=== PATIENT | female | born 1965 | race Caucasian/White ===

== ENCOUNTER 2022-06-18 05:49 | Observation (INO) | payer BC, OTHER ==
[2022-06-18 06:29] LABS: Actual Bicarbonate (HCO3v) 25 mEq/L (22-28); Base Excess 0.1 mEq/L (-2.0 to +3.0); Calcium, Ionized (venous) 1.14 mmol/L (1.16-1.32); Chloride (VBG) 103 mmol/L (98-106); Hemoglobin (Hb) 10.5 g/dL (11.7-16.0); Potassium (VBG) 3.79 mmol/L (3.70-5.30); Puncture Site Other Site; RapidComm Collect By CBN; pH (venous) 7.38 (7.32-7.43)
[2022-06-18 06:35] LABS: #Monocytes 0.5 10x3/uL (0.0-1.1); #Neutrophils 8.8 10x3/uL (1.5-8.4); %Basophils 0.2 % (0.0-2.0); %Eosinophils 0.1 % (0.0-6.0); %Lymphocytes 2.5 % (18.0-47.0); %Monocytes 5.3 % (0.0-10.0); %Neutrophils 90.8 % (40.0-75.0); Hemoglobin 9.6 g/dL (12.0-15.5); Mean Corpuscular HGB CONC 29.6 g/dL (32.0-36.0); Mean Corpuscular Hemoglobin 22.7 pg (27.0-33.0); Mean Corpuscular Volume 76.8 fl (81.6-98.3); Mean Platelet Volume 9.2 fl (7.4-10.4); Platelet Count 314 10x3/uL (150-450); RBC Distribution Width 20.4 % (11.5-14.5); Red Blood Cell (RBC) Count 4.22 10x6/uL (3.90-5.03); White Blood Cell (WBC) Count 9.7 10x3/uL (3.5-10.5)
[2022-06-18 06:42] LABS: INR-International Normal Ratio 1.1; PTT 29.5 sec (22.0-33.0)
[2022-06-18 06:53] LABS: Platelet Morphology Comment Appears Adequate
[2022-06-18 06:56] LABS: Hypochromia SLIGHT = 6-15 cells (100X) (0-5/hpf)
[2022-06-18 07:09] LABS: SARS-CoV-2 NAA Rapid Test Not Detected (NotDetected)
[2022-06-18 11:56] LABS: ALT (SGPT) 9 U/L (8-55); AST (SGOT) 14 U/L (5-34); Alkaline Phosphatase 92 U/L (40-110); Anion Gap 14 mmol/L (10-20); BUN (Urea Nitrogen) 16 mg/dL (9.8-20.1); Bilirubin, Total 0.3 mg/dL (0.2-1.2); Calc. Creatinine Clearance 0 mL/min (70-130); Calcium 8.8 mg/dL (7.8-10.44); Carbon Dioxide 24 mmol/L (22-29); Chloride 104 mmol/L (98-107); Estimated GFR 92; Globulin 2.9 g/dL (2.4-3.5); Glucose 132 mg/dL (70-105); Potassium 3.7 mmol/L (3.5-5.1); Protein, Total 5.9 g/dL (6.0-8.3); Sodium 138 mmol/L (136-145)
[2022-06-19] MEDS ORDERED: Acetaminophen 325 MG TAB PO PRN (01:09)
[2022-06-19] MEDS ORDERED: NS 0.9% w/ 20 MEQ KCL 1,000 ML ONE ×2 (01:38→11:53)
[2022-06-19] MEDS: NS 0.9% w/ 20 MEQ KCL 1,000 ML/1,000 ML BAG IV SCH ×2 (01:43→11:55)
[2022-06-19 03:37] LABS: Hemoglobin 9.4 g/dL (12.0-15.5); Mean Corpuscular HGB CONC 29.8 g/dL (32.0-36.0); Mean Corpuscular Hemoglobin 22.5 pg (27.0-33.0); Mean Corpuscular Volume 75.5 fl (81.6-98.3); Mean Platelet Volume 8.7 fl (7.4-10.4); Platelet Count 308 10x3/uL (150-450); RBC Distribution Width 20.7 % (11.5-14.5); Red Blood Cell (RBC) Count 4.17 10x6/uL (3.90-5.03); White Blood Cell (WBC) Count 9.8 10x3/uL (3.5-10.5)
[2022-06-19 03:46] LABS: Anion Gap 12 mmol/L (10-20); BUN (Urea Nitrogen) 16 mg/dL (9.8-20.1); Calc. Creatinine Clearance 0 mL/min (70-130); Calcium 8.9 mg/dL (7.8-10.44); Carbon Dioxide 24 mmol/L (22-29); Chloride 105 mmol/L (98-107); Estimated GFR 102; Glucose 100 mg/dL (70-105); Potassium 4.2 mmol/L (3.5-5.1); Sodium 137 mmol/L (136-145)
[2022-06-19 03:55] LABS: MDiff Complete? YES
[2022-06-19 03:57] LABS: Band 6 % (5-11); Lymphocytes 6 % (21-51); Monocytes 1 % (0-10); Myelocyte 1 % (0-0); Neutrophil 85 % (42-75); Reactive Lymphocytes 1 % (0-10)
[2022-06-19 03:59] LABS: Hypochromia SLIGHT = 6-15 cells (100X) (0-5/hpf); Platelet Morphology Comment Appears Adequate
[2022-06-19] MEDS ORDERED: Apixaban 5 MG TAB PO SCH (09:00)
[2022-06-19] MEDS ORDERED: Apixaban 5 MG TAB ONE (11:52)
[2022-06-20] MEDS ORDERED: Levothyroxine Sodium 50 MCG TAB PO SCH (06:00)
[2022-06-20] MEDS ORDERED: Potassium Chloride 20 MEQ TAB PO SCH (09:00)
[2022-06-20] MEDS ORDERED: Furosemide 40 MG TAB PO SCH (09:00)
== END 2022-06-19 17:00 | disposition home or self-care (01) ==
LOC: CSHERS 05:49 → CSHERHOLD 22:23 → INTOOBSV 22:23 → CSHERHOLD 06-19 00:57 → UNDOADMIN 06-19 00:57
PROVIDERS: ADMIT Family Medicine; ATTEND Internal Medicine
DX: J96.21 Acute and chronic respiratory failure with hypoxia (principal); J90 Pleural effusion, not elsewhere classified; J44.9 Chronic obstructive pulmonary disease, unspecified; R53.1 Weakness; I82.409 Acute embolism and thrombosis of unspecified deep veins of unspecified lower extremity; Z79.01 Long term (current) use of anticoagulants; Z20.822 Contact with and (suspected) exposure to COVID-19; Z79.899 Other long term (current) drug therapy; Z87.891 Personal history of nicotine dependence; Z85.3 Personal history of malignant neoplasm of breast; Z85.118 Personal history of other malignant neoplasm of bronchus and lung
CPT/HCPCS: 36415; 71045; 80048; 80053; 82805; 83735; 83880; 84145; 84484; 85025; 85610; 85730; 93005; 94644; 94760; G0378; J3480; J7620